=== PATIENT | female | born 1955 | race Caucasian/White ===

== ENCOUNTER 2016-02-17 10:10 | Day surgery (SDC) | payer OTHER ==
[2016-02-11 16:21] VITALS: BMI 24.4
[2016-02-17] MEDS ORDERED: DEXAMETHASONE SOD PHOSPHATE/PF 10 MG/ML SDV ONE (11:37)
[2016-02-17] MEDS ORDERED: BUPIVACAINE HCL/PF 0.5% (5MG/ML) 10 ML VIAL ONE (11:37)
[2016-02-17] MEDS ORDERED: LIDOCAINE HCL 1%, 10 MG/ML (20ML VIAL) ONE (11:37)
[2016-02-17] MEDS ORDERED: MINERAL OIL/PETROLATUM,WHITE 3.5 GM TUBE ONE (11:48)
[2016-02-17] MEDS ORDERED: PROPOFOL 20 ML ONE ×2 (11:48→12:24)
[2016-02-17] MEDS ORDERED: MIDAZOLAM HCL 2 MG/2 ML SINGLE DOSE VIAL ONE ×2 (11:48→13:11)
[2016-02-17] MEDS ORDERED: ceFAZolin SODIUM 1 GM VIAL ONE (12:01)
[2016-02-17] MEDS ORDERED: ceFAZolin SODIUM 1 GM VIAL IVPB ONE (12:05)
[2016-02-17] MEDS ORDERED: DEXAMETHASONE SOD PHOSPHATE 4 MG/1 ML VIAL ONE ×2 (12:24→13:23)
[2016-02-17] MEDS ORDERED: ONDANSETRON 4 MG/2 ML VIAL ONE ×2 (12:24→13:23)
[2016-02-17] MEDS ORDERED: BUPIVACAINE HCL/PF 0.5% (5MG/ML) 10 ML VIAL IJ ONE (13:13)
[2016-02-17] MEDS ORDERED: KETOROLAC TROMETHAMINE 30 MG/1 ML VIAL ONE (13:13)
[2016-02-17] MEDS ORDERED: DEXAMETHASONE SOD PHOSPHATE 10 MG/1 ML VIAL IM ONE (13:13)
[2016-02-17] MEDS ORDERED: oxyCODONE HCL 5 MG TABLET PO PRN (13:34)
[2016-02-17] MEDS ORDERED: ONDANSETRON 4 MG/2 ML VIAL IVPUSH PRN (13:34)
[2016-02-17] MEDS ORDERED: LACTATED RINGERS SOLUTION 1,000 ML IV SCH (13:45)
--- NOTE | 2016-02-17 13:46 | OP ---
Operative Note - Note: Operative Date: 02/17/16 Pre-Operative Diagnosis: Painful Right Bunion Operation: Silver Bunionectomy Right Foot Findings: Hypertrophied bone right first metatarsal head medial eminence. Laterally deviated right hallux. Surgeon: Veronica Gilmore Cylinder Die Machine Operator: STAFF,NOT ON Anesthesiologist/BEAM DYER OPERATOR: Naheed Dickinson Anesthesia: MAC Specimens Removed: Bone Estimated Blood Loss (mls): 1 Operative Report Dictated: Yes
[2016-02-17 14:55] VITALS: TEMP 97.5
[2016-02-17 17:09] VITALS: BP 130/80; PULSE 60
--- NOTE | 2016-02-18 09:53 | OP ---
DATE OF OPERATION: 02/17/2016 SURGEON: Veronica Gilmore DPM WARDROBE ASSISTANT: Pierre Rueda DPM ANESTHESIOLOGIST: Naheed Dickinson MD PREOPERATIVE DIAGNOSIS: Hallux abducto valgus, right foot. POSTOPERATIVE DIAGNOSIS: Hallux abducto valgus, right foot. PATHOLOGY: Bone. OPERATIVE PROCEDURE: Silver bunionectomy, right foot. ANESTHESIA: Local with IV sedation. HEMOSTASIS: Pneumatic ankle tourniquet. ESTIMATED BLOOD LOSS: 1 mL. MATERIALS: None. COMPLICATIONS: None. OPERATIVE FINDINGS: Hypertrophied bone right first metatarsal head at the medial eminence with a lateral deviated hallux. OPERATIVE PROCEDURE: The patient was brought to the operating room and placed on the operating table in the supine position. A pneumatic ankle tourniquet was then placed on the patient's right ankle. Following IV sedation, local anesthesia was obtained utilizing 12 mL of a 1:1 mixture of 1% lidocaine plain and 0.5% Marcaine plain. The foot was then scrubbed, prepped and draped in the usual aseptic manner. An Esmarch bandage was then utilized to exsanguinate the patient's right foot and the tourniquet was inflated. Attention was directed to the dorsal aspect of the first metatarsal head of the right foot, where a 5 cm linear longitudinal incision was made medial and parallel to the tendon of the extensor hallucis longus. The incision was deepened through the subcutaneous tissues using sharp and blunt dissection to the level of the capsule. Care was taken to identify and retract all vital neural and vascular structures. All bleeders were ligated and cauterized as necessary. At this time, an inverted L-type capsulotomy was performed over the dorsal aspect of the first metatarsophalangeal joint. The periosteal and capsular structures were then carefully dissected free and reflected medially and laterally, thus exposing the head of the first metatarsal. Using an osteotome and mallet, the dorsal and medial prominences were resected and passed from the operative field. The remaining bone shelf, as well as rough edges of bone were then resected and smoothed using a rasp and the bunion deformity was noted to be significantly improved. Attention was then directed to the first interspace via the original skin incision. Sharp and blunt dissection was utilized to reach and visualize the conjoined adductor tendon, which was then transected. It was then apparent that the lateral contracture present on the hallux was significantly reduced. The wound was then flushed with copious amounts of sterile saline and the periosteal and capsular structures were reapproximated using 3-0 Vicryl. Redundant capsular tissue was resected as needed and the subcutaneous tissue was then closed with 4-0 Vicryl. The skin edges were then coapted using 4-0 nylon. The incision was then dressed with Betadine soaked Adpatic and covered with sterile compressive dressing, such as 4x4s and Maria Ines, after a postop injection of 1 mL of dexamethasone phosphate and 4 mL of 0.5% Marcaine plain was infiltrated into the surgical area. The tourniquet was then deflated and immediate hyperemia returned to all digits. The foot was then wrapped with Coban and an David bandage. The patient tolerated the procedure well and was transferred to the recovery room with all vital signs stable and vascular status intact to the feet. Following postoperative monitoring, the patient was discharged and given instructions and prescriptions, which were discussed prior to the surgery. SAVAGE CUNHA/[id number]
--- NOTE | 2016-02-19 15:44 | PATH ---
Surgical Pathology Report Patient Name: ADDIE CONNER Med. Rec. #: [id number] /Age/Gender: 1955 (Age: 60) / F Account: [id number] Location: [facility] Taken: 02/17/2016 Received: 02/18/2016 Reported: 02/19/2016 Physicians: Veronica Gilmore DPM Specimen(s) Received BUNION RIGHT FOOT Clinical History Bunion right foot Final Diagnosis BONE AND CARTILAGE, RIGHT FOOT, BUNIONECTOMY: BONE AND CARTILAGE WITH DEGENERATIVE CHANGES. Electronically Signed Johann Solis M.D. Gross Description Received in formalin, labeled "bunion right foot" is a 2.4 x 2.2 x 0.3 cm aggregate of bills, irregular to fragmented portions of bone and soft tissue. Underwater Hunter Trapper sections are submitted in one cassette, following decalcification. /02/18/201602/18/2016
--- NOTE | 2016-05-31 18:42 | OP ---
DATE OF OPERATION: 02/17/2016 PREOPERATIVE DIAGNOSIS: Hallux abductovalgus, right foot. POSTOPERATIVE DIAGNOSIS: Hallux abductovalgus, right foot. OPERATIVE PROCEDURE: Silver bunionectomy, right foot. SURGEON: Veronica Gilmore DPM MAINFRAME SYSTEMS ADMINISTRATOR: . ANESTHESIA: Local with IV sedation. HEMOSTASIS: Pneumatic ankle tourniquet. ESTIMATED BLOOD LOSS: 1 mL. MATERIALS: None. PATHOLOGY: Bone. COMPLICATIONS: None. OPERATIVE PROCEDURE: The patient was brought to the operating room and placed on the operating table in the supine position. A pneumatic ankle tourniquet was then placed on the patient's right ankle. Following IV sedation, local anesthesia was obtained utilizing 12 mL of a 1:1 mixture of 0.5% Marcaine plain and 1% lidocaine plain. The foot was then scrubbed, prepped, and draped in the usual aseptic manner. An Esmarch bandage was then utilized to exsanguinate the patient's right foot and the tourniquet was inflated. Attention was then directed to the dorsal aspect of the 1st metatarsal head of the right foot, where a 4 cm linear longitudinal incision was made medial and parallel to the tendon of the extensor hallucis longus. The incision was deepened through the subcutaneous tissues using sharp and blunt dissection to the level of the capsule. Care was taken to identify and retract all vital neural and vascular structures. All bleeders were ligated and cauterized as necessary. At this time, an inverted L-type capsulotomy was performed over the dorsal aspect of the 1st metatarsophalangeal joint. The periosteal and capsular structures were then carefully dissected free and reflected medially and laterally, thus exposing the head of the left 1st metatarsal. It was noted that the 1st metatarsal had a prominent medial eminence at the medial aspect of the head. Utilizing a sagittal bone saw, the dorsal and medial prominences were resected and passed from the operative field. The remaining medial bone shelf as well as all rough edges of bone was then resected and smoothed using power equipment and the bunion deformity was noted to be improved. The wound was then flushed with copious amounts of sterile saline and the periosteal and capsular structures were then reapproximated using 3-0 Vicryl. The subcutaneous tissue was then closed with 4-0 Vicryl and the skin edges were then coapted using 4-0 nylon. AT this point a 5:1 mixture of 0.5% Marcaine plain and 1 mg Decadron was then infiltrated around the surgical area. The incision was then dressed with Betadine-soaked Adaptic and covered with sterile compressive dressing such as 4 x 4's and Maria Ines. The tourniquet was then deflated and immediate hyperemia returned to all digits. The foot was then wrapped with Coban, then an David bandage. The patient tolerated the procedure well and was transferred to the recovery room with all vital signs stable and vascular status intact to the feet. Following postoperative monitoring, the patient will be discharged and given instructions, which were discussed prior to the surgery. SAVAGE CUNHA/[id number]
== END 2016-02-17 17:09 | disposition home or self-care (01) ==
LOC: JASU-SURG 10:10
PROVIDERS: ATTEND Podiatrist Foot Surgery
PROC: 0QBN0ZZ Excision of Right Metatarsal, Open Approach (ICD-10-PCS; principal; 2016-02-17 11:30)
DX: M20.11 Hallux valgus (acquired), right foot (principal)
CPT/HCPCS: 73630-TC-RT; 88304-TC; 88311-TC; 94760; 97116-GP